=== PATIENT | male | born 1965 | race Caucasian/White ===

== ENCOUNTER 2024-10-30 01:01 | Emergency (ER) | payer OTHER ==
[2024-10-30 01:33] LABS: Band 2 % (5-11); Eosinophils 1 % (0-10); Hemoglobin 15.6 g/dL (14.0-18.0); Lymphocytes 7 % (21-51); MDiff Complete? YES; Mean Corpuscular Hemoglobin 25.4 pg (27.0-31.0); Mean Corpuscular Volume 84.9 fl (78.0-98.0); Mean Platelet Volume 9.5 fL (7.4-10.4); Monocytes 4 % (0-10); Neutrophil 86 % (42-75); Platelet Count 261 10x3/uL (130-400); RBC Distribution Width 13.2 % (11.5-14.5); Red Blood Cell (RBC) Count 6.13 mill/uL (4.70-6.10); White Blood Cell (WBC) Count 15.9 10x3/uL (4.8-10.8)
[2024-10-30 01:45] LABS: ALT (SGPT) 13 U/L (Less than 45); AST (SGOT) 20 U/L (11-34); Albumin 4.3 g/dL (3.1-4.5); Alkaline Phosphatase 54 U/L (40-110); Anion Gap 14 mmol/L (10-20); BUN (Urea Nitrogen) 23 mg/dL (8.4-25.7); Bilirubin, Total 0.5 mg/dL (0.3-1.2); CK (CPK) 36 U/L (30-200); Calc. Creatinine Clearance 0 mL/min (70-130); Calcium 9.6 mg/dL (7.8-10.44); Carbon Dioxide 23 mmol/L (23-31); Chloride 104 mmol/L (98-107); Estimated GFR 67; Globulin 3.1 g/dL (2.4-3.5); Glucose 161 mg/dL (80-115); Magnesium 1.8 mg/dL (1.6-2.6); Potassium 3.4 mmol/L (3.5-5.1); Protein, Total 7.4 g/dL (5.8-8.1); Sodium 138 mmol/L (136-145)
[2024-10-30 01:47] LABS: Troponin I Less than 0.010 ng/mL (< 0.028)
[2024-10-30] MEDS ORDERED: Nitroglycerin 2% Ointment 1 INCH/1 GM Packet ONE (01:59)
[2024-10-30] MEDS ORDERED: Ketorolac Tromethamine 30 MG (1 mL) VIAL ONE (02:02)
[2024-10-30] MEDS ORDERED: LevoFLOXacin 750 mg/D5W 150 ml Premix Bag ONE (03:21)
[2024-10-30] MEDS ORDERED: metroNIDAZOLE 500 MG (100 mL) BAG ONE (03:22)
[2024-10-30] MEDS ORDERED: Pantoprazole 40 MG VIAL ONE (03:22)
[2024-10-30] MEDS ORDERED: Mag-Al 1200 mg/1200 mg/30 ML UDCUP ONE (03:22)
[2024-10-30] MEDS ORDERED: Lidocaine Viscous Sol 2% 15 ml UD Cup ONE (03:22)
[2024-10-30] MEDS ORDERED: Sodium Chloride 0.9% 1,000 ML ONE (03:22)
[2024-10-30 04:53] LABS: Troponin I 0.012 ng/mL (< 0.028)
[2024-10-30 07:24] LABS: Troponin I 0.016 ng/mL (< 0.028)
[2024-10-30] MEDS ORDERED: Clopidogrel Bisulfate 75 MG TAB ONE (08:11)
[2024-10-30] MEDS ORDERED: Enoxaparin 30 MG (0.3 mL) SYRINGE ONE (08:11)
[2024-10-30] MEDS ORDERED: Enoxaparin 100 MG (1 mL) SYRINGE ONE (08:11)
[2024-10-30] MEDS ORDERED: Orphenadrine Citrate 60 MG/2 ML VIAL ONE (08:12)
[2024-10-30] MEDS ORDERED: Furosemide 40 MG TAB ONE (08:58)
[2024-10-30] MEDS ORDERED: Iopamidol 370 76% 100 ML VIAL ONE (09:00)
== END 2024-10-30 09:15 | disposition short-term general hospital (02) ==
LOC: MADERS 01:01
DX: I20.0 Unstable angina (principal); D72.829 Elevated white blood cell count, unspecified; R10.13 Epigastric pain; R94.31 Abnormal electrocardiogram [ECG] [EKG]; I11.0 Hypertensive heart disease with heart failure; I50.9 Heart failure, unspecified; E78.5 Hyperlipidemia, unspecified; E11.9 Type 2 diabetes mellitus without complications; I25.2 Old myocardial infarction; Z79.02 Long term (current) use of antithrombotics/antiplatelets; Z79.01 Long term (current) use of anticoagulants; Z79.84 Long term (current) use of oral hypoglycemic drugs; Z79.899 Other long term (current) drug therapy
CPT/HCPCS: 71045; 71260; 74177; 80053; 82550; 83735; 83880; 84484; 85025; 85379; 93005; 96365; 96368; 96372; 96375; J1650; J1885; J1956; J2360; J2470; J7030; Q9967

== ENCOUNTER 2025-04-27 10:43 | Outpatient (CLI) | payer OTHER ==
[2025-04-27 11:22] LABS: ALT (SGPT) 9 U/L (Less than 45); AST (SGOT) 18 U/L (11-34); Albumin 4.1 g/dL (3.1-4.5); Alkaline Phosphatase 50 U/L (40-110); Anion Gap 16 mmol/L (10-20); BUN (Urea Nitrogen) 25 mg/dL (8.4-25.7); Bilirubin, Total 0.6 mg/dL (0.3-1.2); Calc. Creatinine Clearance 0 mL/min (70-130); Calcium 9.4 mg/dL (7.8-10.44); Carbon Dioxide 28 mmol/L (23-31); Chloride 101 mmol/L (98-107); Globulin 2.7 g/dL (2.4-3.5); Glucose 139 mg/dL (80-115); Potassium 3.4 mmol/L (3.5-5.1); Sodium 142 mmol/L (136-145)
[2025-04-27 11:40] LABS: Hematocrit 51.8 % (42.0-52.0); Hemoglobin 15.8 g/dL (14.0-18.0); Mean Corpuscular Hemoglobin 26.0 pg (27.0-31.0); Mean Corpuscular Volume 85.1 fl (78.0-98.0); Platelet Count 299 10x3/uL (130-400); Red Blood Cell (RBC) Count 6.08 mill/uL (4.70-6.10); White Blood Cell (WBC) Count 10.3 10x3/uL (4.8-10.8)
[2025-04-27 12:04] LABS: MDiff Complete? YES; Manual Diff?? YES
[2025-04-27 12:05] LABS: Platelet Adequacy Comment Appears Adequate
== END 2025-04-27 10:44 | disposition home or self-care (01) ==
LOC: MADLAB 10:43
PROVIDERS: ATTEND Internal Medicine Cardiovascular Disease
DX: I25.5 Ischemic cardiomyopathy (principal)
CPT/HCPCS: 36415; 80053; 85025